=== PATIENT | female | born 1965 | race Caucasian/White ===

== ENCOUNTER 2017-01-20 08:39 | Emergency (ER) | payer OTHER ==
[~2017-01-20] VITALS: Ht 167.6 cm; Wt 111.3 kg
[2017-01-20 08:42] VITALS: BP 153/92
--- NOTE | 2017-01-20 08:55 | NUR ---
PT AMBULATED TO BED4
--- NOTE | 2017-01-20 08:58 | NUR ---
Olvin wong in ED - 01/20/17 at 0900 by [email or web address] CAROLINA VARNER REEVALUATING PT AT BEDSIDE.
--- NOTE | 2017-01-20 09:05 | NUR ---
PATIENT PRESENTS TO ED WITH C/O LOWER BACK PAIN X 2 WKS S/P MECHANICAL FALL ---PAIN RADIATING RLE DENIES DYSURIA NO INCONTINENCE HX----LEFT KNEE, RX----NORCO, TRAMADOL, MOBIC, ROBAXIN, MOTRIN, VIT D3; DENIES N/V/D; SKIN IS PINK/WARM/DRY; AAOX4 WITH EVEN AND STEADY GAIT; LUNGS CLEAR BL; HR EVEN AND REGULAR; PT DENIES ANY FEVER, CP, SOB, OR COUGH AT THIS TIME; PATIENT STATES BACK PAIN OF 10/10 AT THIS TIME; VSS; PATIENT POSITIONED FOR COMFORT; HOB ELEVATED; BEDRAILS UP X2; BED DOWN. ER MD MADE AWARE OF PT STATUS.
--- NOTE | 2017-01-20 09:15 | NUR ---
ER MD DR VARNER EVALUATING PT AT BEDSIDE.
[2017-01-20] MEDS ORDERED: KETOROLAC 60 MG/2 ML VIAL IM ONE (09:20)
--- NOTE | 2017-01-20 09:27 | NUR ---
PT TAKEN OFF THE UNIT TO XRAY VIA WHEEL CHAIR BY [employer] TECH
[2017-01-20 09:43] LABS: BILIRUBIN,URINE NEGATIVE (NEGATIVE); BLOOD, URINE TRACE-I (NEGATIVE); COLOR,URINE YELLOW (YELLOW); LEUKOCYTE ESTERASE ,URINE 2+ (NEGATIVE); NITRITE, URINE NEGATIVE (NEGATIVE); PH,URINE 5.5 (5.0-9.0); PROTEIN,URINE NEGATIVE (NEGATIVE); UGLUCOSE NEGATIVE (NEGATIVE); UROBILINOGEN,URINE 0.2 EU/dL (0.2 - 1)
--- NOTE | 2017-01-20 09:45 | NUR ---
PT BACK FROM XRAY PLACED BED, C/O BACK PAIN, MEDICATION GIVEN, PLACED BACK ON MONITOR, WILL CONTINUE TO MONITOR
[2017-01-20] MEDS ORDERED: oxyCODONE/APAP 5/325 MG 1 TAB TAB PO ONE (10:10)
[2017-01-20 10:28] LABS: APPEARANCE,URINE HAZY (CLEAR)
[2017-01-20 10:33] LABS: BACTERIA,URINE 2+ /HPF (None Seen); WBC,URINE 20-60 /HPF (0-5)
[2017-01-20 10:34] LABS: MUCUS,URINE 2+ /LPF (None Seen)
[2017-01-20 10:34] LABS: BASOPHILS # (AUTO) 0.1 K/uL (0.00-0.22); BASOPHILS % (AUTO) 1.6 % (0.0-2.0); EOSINOPHILS # (AUTO) 0.2 K/uL (0-0.4); EOSINOPHILS % (AUTO) 2.4 % (0.0-4.0); HEMATOCRIT 37.7 % (36-48); HEMOGLOBIN 12.9 g/dL (12.0-16.0); LYMPHOCYTES % (AUTO) 32.4 % (20.5-51.1); MEAN CORPUSCULAR HEMOGLOBIN 31 pg (27-31); MEAN CORPUSCULAR HGB CONC 34 g/dL (33-37); MEAN CORPUSCULAR VOLUME 91 fL (80-94); MONOCYTES # (AUTO) 0.4 K/uL (0.8-1.0); MONOCYTES % (AUTO) 5.7 % (1.7-9.3); NEUTROPHILS # (AUTO) 3.6 K/uL (1.8-7.7); NEUTROPHILS % (AUTO) 57.9 % (42.2-75.2); PLATELET COUNT (AUTO) 206 K/uL (140-450); RED BLOOD CELL COUNT(AUTO) 4.12 MIL/uL (4.20-5.40); RED CELL DISTRIBUTION WIDTH 12.7 % (11.6-13.7); WHITE BLOOD COUNT (AUTO) 6.3 K/uL (4.8-10.8)
--- NOTE | 2017-01-20 10:35 | NUR ---
PT RESTING COMFORTABLY ON BED, NO C/O PAIN AT THIS TIME, WILL CONTINUE TO MONITOR
[2017-01-20 10:58] LABS: ALBUMIN 3.3 g/dL (3.4-5.0); ANION GAP 11.2 (8-16); CALCIUM 8.8 mg/dL (8.5-10.1); CARBON DIOXIDE 28.7 mmol/L (21-32); CREATININE 0.9 mg/dL (0.6-1.3); POTASSIUM 4.9 mmol/L (3.5-5.1); TOTAL BILIRUBIN 0.8 mg/dL (0.0-1.0); TOTAL PROTEIN, SERUM 6.7 g/dL (6.4-8.2)
[2017-01-20 11:52] VITALS: BP 143/77
--- NOTE | 2017-01-20 11:52 | NUR ---
Patient discharged with v/s stable. Written and verbal after care instructions given and explained. Patient alert, oriented and verbalized understanding of instructions. Ambulatory with steady gait. All questions addressed prior to discharge. ID band removed. Patient advised to follow up with PMD. Rx of NITROFURANTOIN, CYCLOBENZAPRINE, DICLOFENAC given. Patient educated on indication of medication including possible reaction and side effects. Opportunity to ask questions provided and answered.
== END 2017-01-20 11:52 | disposition home or self-care (01) ==
LOC: MED 08:39
DX: S39.012A Strain of muscle, fascia and tendon of lower back, initial encounter (principal); N39.0 Urinary tract infection, site not specified; M13.862 Other specified arthritis, left knee; X58.XXXA Exposure to other specified factors, initial encounter; Y93.89 Activity, other specified; Y92.89 Other specified places as the place of occurrence of the external cause; Y99.8 Other external cause status
CPT/HCPCS: 36415; 72110; 80053; 81001; 81025; 83605; 83690; 84484; 85025; 87086; 87186; 96372; 99285; J1885

== ENCOUNTER 2020-07-29 18:56 | Emergency (ER) | payer OTHER, SELFPAY ==
[~2020-07-29] VITALS: Ht 170.2 cm; Wt 107.0 kg
[2020-07-29 19:12] VITALS: BP 155/77
--- NOTE | 2020-07-29 19:18 | NUR ---
PATIENT AMBULATED TO BED 4.
--- NOTE | 2020-07-29 19:20 | NUR ---
55 YO F BIB SELF WITH C/C OF VOMITTING, H/A 10/10, DIARRHEA, AND CHILLS X3DAYS. PT DENIED BLOOD IN EMESIS AND DIARRHEA. STOOLS BRIGHT YELLOW PER PT. PT DENIED ABD PAIN, COUGH, CHEST PAIN, AND LOSS OF TASTE/SMELL. PT DENIES EXPOSURE TO COVID. ABD SOFT AND ROUND, BOWEL SOUNDS ACTIVE X4, NO PAIN TO TOUCH. PT STATED SHE TOOK TYLENOL AND AMOXICILLIN FOR HEADACHE. PT IN STABLE CONDITION. SIDE RAILS X1, BED LOCKED IN LOWEST POSITION. KENNETH LYON AT BEDSIDE EXAMINING PT. HX: DENIES GALLBLADDER REMOVAL, KNEE AND HIP REPLACEMENT LMP: MENOPAUSE DENIES ALLERGIES
[2020-07-29] MEDS ORDERED: NACL 0.9% 1,000 ML IV SCH (19:30)
[2020-07-29] MEDS ORDERED: ONDANSETRON 4 MG/2 ML VIAL IVP ONE (19:30)
[2020-07-29] MEDS ORDERED: DIPHENOXYLATE /ATROPINE 2.5 MG TAB PO ONE (19:30)
--- NOTE | 2020-07-29 19:45 | NUR ---
SWAB AND BLOOD COLLECTED. WALKED OVER TO LAB, BLOOD GIVEN TO AUGUSTUS.
[2020-07-29] MEDS ORDERED: KETOROLAC 15 MG/ML VIAL IVP ONE ×2 (19:55→20:55)
[2020-07-29 20:02] LABS: BASOPHILS # (AUTO) 0.1 K/uL (0.00-0.22); BASOPHILS % (AUTO) 0.9 % (0.0-2.0); EOSINOPHILS % (AUTO) 0.2 % (0.0-4.0); HEMATOCRIT 42.3 % (36-48); HEMOGLOBIN 14.3 g/dL (12.0-16.0); LYMPHOCYTES # (AUTO) 1.3 K/uL (2.5-16.5); LYMPHOCYTES % (AUTO) 16.9 % (20.5-51.1); MEAN CORPUSCULAR HEMOGLOBIN 30 pg (27-31); MEAN CORPUSCULAR HGB CONC 34 g/dL (33-37); MEAN CORPUSCULAR VOLUME 89.4 fL (80-94); MONOCYTES # (AUTO) 0.4 K/uL (0.8-1.0); MONOCYTES % (AUTO) 5.1 % (1.7-9.3); NEUTROPHILS # (AUTO) 6.1 K/uL (1.8-7.7); NEUTROPHILS % (AUTO) 76.9 % (42.2-75.2); PLATELET COUNT (AUTO) 245 K/uL (140-450); RED BLOOD CELL COUNT(AUTO) 4.73 MIL/uL (4.20-5.40); RED CELL DISTRIBUTION WIDTH 13.1 % (11.6-13.7); WHITE BLOOD COUNT (AUTO) 7.9 K/uL (4.8-10.8)
[2020-07-29 20:51] LABS: CARBON DIOXIDE 28.5 mmol/L (21-32); CREATININE 0.9 mg/dL (0.6-1.3); POTASSIUM 3.5 mmol/L (3.5-5.1); TOTAL BILIRUBIN 1.2 mg/dL (0.0-1.0)
--- NOTE | 2020-07-29 20:52 | NUR ---
PT REPORTED H/A CONT. 04/12. KENNETH LYON AT BEDSIDE. ORDERS RECIEVED AND CARRIED OUT.
--- NOTE | 2020-07-29 21:13 | NUR ---
ERMD AT BEDSIDE.
[2020-07-29 21:20] VITALS: BP 161/92
--- NOTE | 2020-07-29 21:20 | NUR ---
Patient discharged with v/s stable. Written and verbal after care instructions given and explained. Patient alert, oriented and verbalized understanding of instructions. Ambulatory with steady gait. All questions addressed prior to discharge. ID band removed. Patient advised to follow up with PMD. Rx of ZOFRAN, LOMOTIL, AND ACETAMINOPHEN given. Patient educated on indication of medication including possible reaction and side effects. Opportunity to ask questions provided and answered.
== END 2020-07-29 21:20 | disposition home or self-care (01) ==
LOC: MED 18:56
DX: R11.2 Nausea with vomiting, unspecified (principal); R19.7 Diarrhea, unspecified; R03.0 Elevated blood-pressure reading, without diagnosis of hypertension; Z20.828 Contact with and (suspected) exposure to other viral communicable diseases
CPT/HCPCS: 80053; 81002; 85025; 96361; 96374; 96375; 96376; 99284; J1885; J2405; J7030; U0003